=== PATIENT | female | born 1985 ===

== ENCOUNTER 2022-04-28 05:17 | Emergency (ER) | payer OTHER ==
[~2022-04-28] VITALS: Ht 167.6 cm; Wt 65.8 kg
[~2022-04-28 05:17] MED LIST: FIORICET PO
== END 2022-04-28 09:35 | disposition home or self-care (01) ==
LOC: ER 05:17
DX: U07.1 COVID-19 (principal); J10.1 Influenza due to other identified influenza virus with other respiratory manifestations; R50.9 Fever, unspecified

== ENCOUNTER 2022-07-26 10:42 | Outpatient (CLI) | payer OTHER | END 2022-07-26 10:53 | disposition home or self-care (01) | LOC: SONOGRAMA 10:42 | PROVIDERS: ATTEND Internal Medicine | DX: E04.2 Nontoxic multinodular goiter (principal) ==

== ENCOUNTER 2022-09-08 10:10 | Outpatient (CLI) | payer OTHER | END 2022-09-08 10:14 | disposition home or self-care (01) | LOC: SONOGRAMA 10:10 | PROVIDERS: ATTEND Pathology Anatomic Pathology & Clinical Pathology | DX: D34 Benign neoplasm of thyroid gland (principal); E04.9 Nontoxic goiter, unspecified ==